=== PATIENT | male | born 1995 | race Caucasian/White ===

== ENCOUNTER → 2019-01-04 14:10 | Outpatient (CLI) | payer BC, SELFPAY ==
--- NOTE | 2019-01-04 14:15 | US_ITS ---
US breast RT complete INDICATION: Palpable abnormality in the right axillary region ORDERING PHYSICIAN: Ayaz Jackson MD PATIENT AGE: 23 years COMPARISON: None TECHNIQUE: Images are obtained of the axilla and not the entire breast. FINDINGS: The palpable abnormality corresponds to an oval hypoechoic nodule measuring 6 x 7 x 3 mm and may represent a small lymph node. There are other small nodes present. IMPRESSION: Palpable abnormality in the right axilla may represent small lymph node. CT of the axilla may be of further value if clinically desired
== END ==
PROVIDERS: PCP Family Medicine; Visit Provider Family Medicine
DX: R59.0 Localized enlarged lymph nodes (principal)
CPT/HCPCS: 76641

== ENCOUNTER → 2020-04-20 14:33 | Outpatient (CLI) | payer OTHER, SELFPAY | PROVIDERS: PCP Family Medicine; Visit Provider Family Medicine | DX: Z03.818 Encounter for observation for suspected exposure to other biological agents ruled out (principal) | CPT/HCPCS: U0003 ==

== ENCOUNTER → 2020-04-30 15:02 | Outpatient (CLI) | payer OTHER, SELFPAY ==
[2020-05-02 14:26] LABS: Covid-19 Nasal PCR Sendout Lex NOT DETECTED
== END ==
PROVIDERS: PCP Family Medicine; Visit Provider Family Medicine
DX: Z03.818 Encounter for observation for suspected exposure to other biological agents ruled out (principal)
CPT/HCPCS: U0004